=== PATIENT | female | born 1980 | race Caucasian/White ===

== ENCOUNTER → 2023-06-09 | Emergency (ER) | payer OTHER, SELFPAY ==
[~2023-06-09] MED LIST: CYCLOBENZAPRINE 10 MG TAB ONE; HYDROCODONE/APAP 5/325 MG TAB ONE; KETOROLAC 30 MG/ML INJ ONE; MORPHINE 4 MG/ML SYR ONE; ONDANSETRON 4 MG (ODT) TAB ONE; PROMETHAZINE 25 MG TABLET ONE; predniSONE 20 MG TAB ONE
--- OUTSIDE RECORDS SUMMARY | 2023-06-09 00:41 | XMS REPORT | Continuity of Care Document ---
Author Name Unknown Address [address] [facility] [address] [place] [address] [facility] thconnect Address [address] [facility]. [address] [place] [address] Care Team Providers Care Line Analyst Name Role Phone CORBIN EMERSON Primary Care Physician LINDA Brenner Attending Clinician BARBARA Carcamo Attending Clinician Liset benavidez RADIOLOGY Attending Clinician Unavailable Radiology Attending Clinician Unavailable CORBIN EMERSON Admitting Clinician Unavailable Payers Payer Name Policy Type Policy Number Effective Date Expirati on Date Source ISMAEL GARIBAY [employer]: [employer] 94 ON STAND 9 [id number] 2023 00:00:00 [facility] - OUT OF STATE [id number] 2019 00:00:00 Problems Condition Name Condition Details Condition Category Status Onset Date Resolution Date Last Treatment Date Treating Clinician Comments Source Asthma ([facility]) Asthma ([facility]) Disease Active 2022-06 00:00: 00 Overview: Formattin g of this note might be different from the original. diagnosed in childhood Last Assessmen t & Plan: Formattin g of this note might be different from the original. Patient describin g worsening asthma symptoms. No wheezing on exam but very likely would benefit from controlle r inhaler with inhaled corticost eroids in order to reduce long-term symptom burden. Also stressed complete cessation of smoking. Patient stated she had no interest in quitting at this time. We will order a chest x-ray since patient is new to clinic and has had questiona ble prior care in the past, also complaini ng of right arm neurologi c symptoms. Patient asked if she could have antibioti cs. I did concede that acute bronchiti s could possibly respond to antibioti cs and a smoker, though I did not find any other focal exam findings to suggest a bacterial infection . I will offer her a 5-day course of azithromy tonya. I did stressed that she needs to have a follow-up appointme nt, patient states that she is intereste d in following up in the [facility]. Joan Mendez - Externa l Allergies, Adverse Reactions, Alerts Allergy Name Allergy Type Status Severity Reaction(s) Onset Date Inactive Date Treating Clinician Comments Source Phenytoi n Sodium Propensi ty to adverse reaction s Active Rash 02-02 00:00: 00 Joan Mendez - Externa l Amoxicil weston Propensi ty to adverse reaction s Active Rash 02-02 00:00: 00 Joan Bakera l NO KNOWN ALLERGIE S Drug Class Active [facility] Social History Social Habit Start Date Stop Date Quantity Comments Source Sexual orientation K rehana Mendez - External History of tobacco use Cigarette Smoker Joan romero - External Alcohol intake 2023-05-13 00:00:00 2023-05-13 00:00:00 Current drinker of alcohol (finding) Joan Mendez - External History of Social function 2023-05-13 00:00:00 2023-05-13 00:00:00 Joan Mendez - External Alcohol Comment 2023-05-13 00:00:00 2023-05-13 00:00:00 occasional Joan Mendez - External Cigarettes smoked current (pack per day) - Reported 2023-05-13 00:00:00 2023-05-13 00:00:00 Joan Mendez - External Tobacco use and exposure 2023-05-13 00:00:00 2023-05-13 00:00:00 Smokeless tobacco non-user Joan Mendez - External Sex Assigned At 1980 00:00:00 1980 00:[birth year]:00 Joan Mendez - External Smoking Status Start Date Stop Date Source Unknown if ever smoked [facility] Smokes tobacco daily 2023-05-13 00:00:00 Joan Lazo Medications Ordered Medication Name Filled Medication Name Start Date Stop Date Current Medication? Ordering Clinician Indication Dosage Frequency Signature (SIG) Comments Components Source Gabapentin 300 MG oral Capsule 2022-06 08:20: 52 Yes Joan phoenix Topiramate 100 MG oral Tablet 2022-06 08:20: 52 Yes Joan phoenix Vilazodone HCl 40 MG oral Tablet 2022-06 08:20: 52 Yes Joan phoenix Lamotrigine 150 MG oral Tablet 2022-06 08:20: 52 Yes Joan phoenix Albuterol HFA 108 (90 Base) MCG/ACT IN AERS 2022-06 00:00: 00 Yes [id number] 2{puff} Q4H Inhale 2 puffs into the lungs every 4 hours as needed for wheezing or shortness of breath. Joan phoenix Fluticasone -Salmeterol (Advair Diskus) 500-50 MCG/ACT inhalation AEROSOL POWDER, BREATH ACTIVATED 2022-06 00:00: 00 05:59 :00 Yes [id number] 1{puff} Inhale 1 puff into the lungs 2 times daily. Joan phoenix Naproxen 500 MG oral Tablet 2022-06 00:00: 00 05-29 05:59 :00 Yes [id number] 500mg Take 1 tablet (500 mg total) by mouth in the morning and 1 tablet (500 mg total) in the evening. Take with meals. Do all this for 15 days. Joan phoenix Azithromyci n 250 MG oral Tablet 2022-06 00:00: 00 05-19 05:59 :00 Yes [id number] Take 2 tablets (500 mg total) by mouth daily for 1 day, THEN 1 tablet (250 mg total) daily for 4 days. Joan phoenix Lurasidone HCl 80 MG oral Tablet 2022-06 00:00: 00 Yes Joan Pinonold - Externa l Lurasidone HCl 20 MG oral Tablet 2022-06 00:00: 00 Yes Joan Mendez - Externa l Immunizations Ordered Immunization Name Filled Immunization Name Date Status Comments Source Influenza, Injectable, Mdck, Quadrivalent With Preservative Unknown Completed Joan Naikybold - External COVID-19 Vaccine(Pfizer)(fall 2022)(12yrs+) Unknown Completed Joan Naikybold - External Vital Signs Vital Name Observation Time Observation Value Comments S ource Systolic blood pressure 2023-05-13 14:15:00 133 mm[Hg] Joan Naikybo ld - External Diastolic blood pressure 2023-05-13 14:15:00 85 mm[Hg] Joan Seybo ld - External Heart rate 2023-05-13 14:15:00 74 /min Gay y Seybold - External Body temperature 2023-05-13 14:15:00 36.67 Corrine Joan ybold - External Respiratory rate 2023-05-13 14:15:00 20 /min Joan Seybold - External Body height 2023-05-13 14:15:00 167.6 cm Ann-Marie ey Seybold - External Body weight 2023-05-13 14:15:00 149.233 kg Ann-Marie ey Seybold - External BMI 2023-05-13 14:15:00 53.10 kg/m2 Ann-Marie ey Seybold - External Procedures Procedure Date / Time Performed Performing Clinician Source CHEST PA LATERAL 2023-05-13 15:39:03 Brenden Fraser Joan Seybold - External [facility] PATIENT FINANCIAL POLICY 2021-10-15 14:57:41 Doctor Unassigned, [facility] NO SHOW OR MISSED APPOINTMENT POLICY ACKNOWLEDGEMENT 2021-10-15 14:57:19 Doctor Unassigned, [facility] NOTICE OF PRIVACY PRACTICES 2021-10-15 14:56:53 Doctor Unassigned, [facility] CONSENT/REFUSAL FOR DIAGNOSIS AND TREATMENT 2021-10-15 14:56:37 Doctor Unassigned, [facility] ASSIGNMENT OF BENEFITS 2021-10-15 14:56:18 Docto r Unassigned, [facility] Encounters Start Date/Time End Date/Time Encounter Type Admission Type Attending [facility] Care Department Encounter ID Source 2023-06-17 14:00:00 2023-06-17 14:00:00 Outpatient LINDA LEVI JOAN JOAN [id number] Joan Andrea 2023-06-10 11:30:00 2023-06-10 11:30:00 Outpatient RAMUSUSI BARBARA JOAN DSA [id number] [facility] 2023-05-13 09:25:00 2023-05-13 09:25:00 Outpatient JOAN DAS [id number] [facility] 2023-05-13 08:15:00 2023-05-13 08:15:00 Outpatient BARBARA FRASER [id number] Joan [facility] 2023-04-22 11:29:53 2023-04-22 11:29:53 Outpatient SFA SFA [id number] Corbin F Christian 2023-02-11 14:11:08 2023-02-11 14:11:08 Outpatient SFA SFA [id number] Corbin Ruthann Christian 2023-02-08 18:13:21 2023-02-08 18:13:21 Outpatient SFA SFA [id number] Corbin Beavers Christian 2021-10-15 09:58:08 2021-10-15 23:59:00 Outpatient R RADIOLOGY [facility] RAD [id number] [facility] 2021-10-15 09:58:08 2021-10-15 23:59:00 Hospital Encounter Radiology [facility] [id number] [facility]
--- NOTE | 2023-06-09 04:01 | EDPHYS ---
Physician Documentation [facility] Name: Genet Hart Age: 43 yrs Sex: Female : 1980 Arrival Date: 06/09/2023 Time: 00:38 Bed 13 Private MD: ED Physician Abhay Desir HPI: 06/09 00:56 This 43 yrs old Female presents to ER via Unassigned with complaints of Arm sp4 Pain. 01:40 Right shoulder right arm pain starting 2 months ago intensifying 2 days ago. sp4 Historical: - Allergies: 01:08 Amoxicillin; ha1 01:08 Dilantin; ha1 - PMHx: 01:08 None; ha1 - Immunization history:: Adult Immunizations unknown. - Social history:: Smoking status: Patient reports the use of cigarette tobacco products, smokes one-half pack cigarettes per day. - Family history:: not pertinent. ROS: 01:52 Constitutional: Negative for fever, chills, and weight loss, positive R shoulder pain sp4 01:52 All other systems are negative, Exam: 01:52 Constitutional: This is a well developed, well nourished patient who is awake, alert, sp4 positive emotional upset Head/Face: Normocephalic, atraumatic. Eyes: Pupils equal round and reactive to light, extra-ocular motions intact. Lids and lashes normal. Conjunctiva and sclera are not injected. Cornea within normal limits. Periorbital areas with no swelling, redness, or edema. ENT: Nares patent. No nasal discharge, no septal abnormalities noted. Tympanic membranes are normal and external auditory canals are clear. Oropharynx with no redness, swelling, or masses, exudates, or evidence of obstruction, uvula midline. Mucous membranes moist. Neck: Trachea midline, no thyromegaly or masses palpated, and no cervical lymphadenopathy. Supple, full range of motion without nuchal rigidity, or vertebral point tenderness. Chest/axilla: Normal chest wall appearance and motion. Nontender with no deformity. No lesions are appreciated. Cardiovascular: Regular rate and rhythm with a normal S1 and S2. No gallops, murmurs, or rubs. Normal PMI, no JVD. No pulse deficits. Respiratory: Lungs have equal breath sounds bilaterally, clear to auscultation and percussion. No rales, rhonchi or wheezes noted. No increased work of breathing, no retractions or nasal flaring. Abdomen/GI: Soft, non-tender, with normal bowel sounds. No distension or tympany. No guarding or rebound. No evidence of tenderness throughout. Back: No spinal tenderness. No costovertebral tenderness. Skin: Warm, dry with normal turgor. Normal color with no rashes, no lesions, and no evidence of cellulitis. MS/ Extremity: Pulses equal, no cyanosis. Neurovascular intact. Full, normal range of motion. Neuro: Awake and alert, GCS 15, oriented to person, place, time, and situation. Cranial nerves II-XII grossly intact. Motor strength 5/5 in all extremities. Sensory grossly intact. Psych: Awake, alert, with orientation to person, place and time. Behavior, mood, and affect are within normal limits Vital Signs: 01:03 BP 142 / 101; Pulse 92; Resp 15 S; Temp 98.1; Pulse Ox 99% on R/A; Weight 147.42 kg; ha1 Height 5 ft. 6 in. ; 01:50 BP 148 / 85; Pulse 70; Resp 17 S; Pulse Ox 96% on R/A; ha1 02:15 BP 133 / 96; Pulse 79; Resp 17 S; Pulse Ox 96% on R/A; ha1 03:10 BP 143 / 83; Pulse 69; Resp 17 S; Pulse Ox 96% on R/A; ha1 04:10 BP 139 / 81; Pulse 70; Resp 16; Pulse Ox 97% on R/A; ha1 01:03 Body Mass Index 52.46 (147.42 kg, 167.64 cm) 1 MDM: 01:34 Patient medically screened. sp4 02:54 ED course: X ray - EXAM: XR Right Shoulder Complete, 2 or More Views CLINICAL HISTORY: sp4 The patient is 43 years old and is Female; R shoulder pain TECHNIQUE: Two or more views of the right shoulder. COMPARISON: No relevant prior studies available. FINDINGS: BONES/JOINTS: Unremarkable. No acute fracture. No dislocation. SOFT TISSUES: Unremarkable. IMPRESSION: Normal right shoulder radiographs.. 03:38 Data reviewed: vital signs, nurses notes. ED course: CT - FINDINGS: Straightening of sp4 the cervical lordosis may be secondary to patient positioning.. The atlantoaxial, atlantodental, and occipitoatlantal intervals are preserved. No fracture identified. Vertebral body height preserved. Prevertebral soft tissues are unremarkable. [id number] multilevel loss of intervertebral disc height with endplate spondylosis, facet arthropathy, and uncovertebral spurring. Posterior disc osteophyte complex at multiple levels mildly encroach upon the anterior spinal canal. Mild neural foraminal narrowing. Visualized skull base is intact. No fracture of the visualized facial bones. Visualized mastoid air cells and paranasal sinuses are well aerated. Visualized thyroid is unremarkable. No cervical lymphadenopathy. No pneumothorax in the visualized lung apices. IMPRESSION: 1. No acute fracture or subluxation of the cervical spine. 2. Moderate multilevel degenerative change of the cervical spine. If there is concern for radiculopathy MRI of the cervical spine would provide more complete characterization. . 03:57 Differential diagnosis: contusion, abrasion, tendonitis, spinal nerve radiculopathy. sp4 Data reviewed: radiologic studies, CT scan, plain films. Consideration of Admission/Observation Escalation of care including admission/observation considered. ED course: Patient has radiculopathic type pain, right shoulder all the way into the right hand suggestive of cervical spinal root compression. . ED course: Patient has no sign of paralysis or weakness on exam. I will refer her to primary care doctor for MRI of his C-spine. Then patient would require visit with neurosurgeon will refer to Dr. Abel Jones. . 06/09 01:27 Order name: Shoulder Right (2 View) XRAY sp4 06/09 01:27 Order name: CT C Spine sp4 Administered Medications: 01:45 Drug: Ondansetron PO 4 mg PO once Route: PO; ha1 02:10 Follow up: Response: No adverse reaction; Nausea is decreased ha1 01:45 Drug: Promethazine PO 50 mg PO once Route: PO; ha1 02:10 Follow up: Response: No adverse reaction; Nausea is decreased ha1 01:51 Drug: morphine IM 8 mg IM once Route: IM; Site: right ventrogluteal; ha1 02:10 Follow up: Response: No adverse reaction; Pain is decreased; RASS: Alert and Calm (0) ha1 01:51 Drug: Cyclobenzaprine PO 10 mg PO once Route: PO; ha1 02:10 Follow up: Response: No adverse reaction ha1 01:51 Not Given (Physician Discretion): [id number] mg IM once ha1 02:00 Drug: Ketorolac IM 60 mg IM once Route: IM; Site: left ventrogluteal; ha1 03:00 Follow up: Response: No adverse reaction; Pain is decreased ha1 02:51 Drug: HYDROcodone-acetaminophen PO 5 mg-325 mg 2 tabs PO once Route: PO; ha1 03:30 Follow up: Response: No adverse reaction; Pain is decreased; RASS: Alert and Calm (0) ha1 04:00 Drug: predniSONE PO 60 mg PO once Route: PO; ha1 04:12 Follow up: Response: No adverse reaction ha1 Disposition Summary: 06/09/23 04:01 Discharge Ordered Problem: new sp4 Symptoms: have improved sp4 Condition: Stable sp4 Diagnosis - Cervical disc disorder with radiculopathy, unspecified cervical region sp4 - Acute cervical radiculopathy. Cervical radicular pain. sp4 Followup: sp4 - With: Private Physician - When: 2 - 3 days - Reason: Recheck today's complaints Discharge Instructions: - Discharge Summary Sheet sp4 - Cervical Radiculopathy sp4 Forms: - Patient Portal Instructions sp4 Prescriptions: - ketorolac 10 mg Oral tablet - take 1 tablet ORAL route every 8 hours for 4 days PRN pain; 30 tablet; Refills: sp4 0, Product Selection Permitted - Cyclobenzaprine 10 mg Oral Tablet - take 1 tablet ORAL route every 8 hours As needed; 30 tablet; Refills: 0, sp4 Product Selection Permitted - Tramadol 50 mg Oral tablet - take 1 tablet ORAL route every 8 hours as needed; 20 tablet; Refills: 0, sp4 Product Selection Permitted - Prednisone 20 mg Oral Tablet - take 2 tablets ORAL route once daily for 5 days; 10 tablet; Refills: 0, Product sp4 Selection Permitted Signatures: Dispatcher [employer] Elise Mars RN RN ha1 Abhay Desir MD MD sp4
--- NOTE | 2023-06-09 04:01 | ER ---
Nurse's Notes [facility] Name: Genet Hart Age: 43 yrs Sex: Female : 1980 Arrival Date: 06/09/2023 Time: 00:38 Bed 13 Private MD: Diagnosis: Cervical disc disorder with radiculopathy, unspecified cervical region;Acute cervical radiculopathy. Cervical radicular pain. Presentation: 06/09 01:03 Chief complaint: Patient states: I have been having right shoulder pain for the past ha1 two days. I had this pain before and was diagnosed with a pinched nerve. pain 03/23. Coronavirus screen: Vaccine status:. Ebola Screen: No symptoms or risks identified at this time. Initial Sepsis Screen: Does the patient meet any 2 criteria? No. Patient's initial sepsis screen is negative. Does the patient have a suspected source of infection? No. Patient's initial sepsis screen is negative. Risk Assessment: Do you want to hurt yourself or someone else? Patient reports no desire to harm self or others. Onset of symptoms was June 07, 2023. 01:03 Method Of Arrival: Ambulatory ha1 01:03 Acuity: CHECO 3 ha1 Triage Assessment: 01:00 General: Appears uncomfortable, Behavior is cooperative. Pain: Complains of pain in ha1 rigth shoulder Pain does not radiate. Pain currently is 10 out of 10 on a pain scale. Quality of pain is described as burning, sharp, throbbing, Pain began gradually, 2-3 days ago. Neuro: Level of Consciousness is awake, alert, obeys commands, Oriented to person, place, time, situation. Cardiovascular: Capillary refill < 3 seconds Patient's skin is warm and dry. Respiratory: Airway is patent Respiratory effort is even, unlabored, Respiratory pattern is regular, symmetrical. Derm: Skin is pink, warm \T\ dry. Musculoskeletal: Circulation, motion, and sensation intact. Range of motion: intact in all extremities. Historical: - Allergies: 01:08 Amoxicillin; ha1 01:08 Dilantin; ha1 - PMHx: 01:08 None; ha1 - Immunization history:: Adult Immunizations unknown. - Social history:: Smoking status: Patient reports the use of cigarette tobacco products, smokes one-half pack cigarettes per day. - Family history:: not pertinent. Screenin:10 [facility] ED Fall Risk Assessment (Adult) History of falling in the last 3 months, ha1 including since admission No falls in past 3 months (0 pts) Confusion or Disorientation No (0 pts) Intoxicated or Sedated No (0 pts) Impaired Gait No (0 pts) Mobility Assist Device Used No (0 pt) Altered Elimination No (0 pt) Score/Fall Risk Level 0 - 2 = Low Risk Oriented to surroundings, Maintained a safe environment, Hourly rounding (assess needs \T\ fall precautionary measures) done. Abuse screen: Denies threats or abuse. Denies injuries from another. Nutritional screening: No deficits noted. Tuberculosis screening: No symptoms or risk factors identified. Assessment: 00:55 Reassessment: see triage assessment. ha1 01:50 Reassessment: Patient and/or family updated on plan of care and expected duration. Pain ha1 level reassessed. Patient is alert, oriented x 3, equal unlabored respirations, skin warm/dry/pink. 02:10 Reassessment: Patient and/or family updated on plan of care and expected duration. Pain ha1 level reassessed. Patient is alert, oriented x 3, equal unlabored respirations, skin warm/dry/pink. Patient states feeling better. Patient states symptoms have improved. 03:10 Reassessment: Patient and/or family updated on plan of care and expected duration. Pain ha1 level reassessed. Patient is alert, oriented x 3, equal unlabored respirations, skin warm/dry/pink. Patient states feeling better. Patient states symptoms have improved. 04:10 Reassessment: Patient and/or family updated on plan of care and expected duration. Pain ha1 level reassessed. Patient is alert, oriented x 3, equal unlabored respirations, skin warm/dry/pink. Vital Signs: 01:03 BP 142 / 101; Pulse 92; Resp 15 S; Temp 98.1; Pulse Ox 99% on R/A; Weight 147.42 kg; ha1 Height 5 ft. 6 in. ; 01:50 BP 148 / 85; Pulse 70; Resp 17 S; Pulse Ox 96% on R/A; ha1 02:15 BP 133 / 96; Pulse 79; Resp 17 S; Pulse Ox 96% on R/A; ha1 03:10 BP 143 / 83; Pulse 69; Resp 17 S; Pulse Ox 96% on R/A; ha1 04:10 BP 139 / 81; Pulse 70; Resp 16; Pulse Ox 97% on R/A; ha1 01:03 Body Mass Index 52.46 (147.42 kg, 167.64 cm) ha1 ED Course: 00:54 Patient arrived in ED. gm2 00:55 Patient has correct armband on for positive identification. Bed in low position. Call ha1 light in reach. Side rails up X 1. Adult w/ patient. 00:55 Arm band placed on right wrist. ha1 00:56 Abhay Desir MD is Attending Physician. sp4 01:08 Triage completed. ha1 01:34 Elise Mancia RN is Primary Nurse. ha1 01:39 Shoulder Right (2 View) XRAY In Process Unspecified. EDMS 02:01 CT C Spine In Process Unspecified. EDMS 04:18 No provider procedures requiring assistance completed. Patient did not have IV access ha1 during this emergency room visit. 04:18 Provided Education on: follow ups . ha1 Administered Medications: 01:45 Drug: Ondansetron PO 4 mg PO once Route: PO; ha1 02:10 Follow up: Response: No adverse reaction; Nausea is decreased ha1 01:45 Drug: Promethazine PO 50 mg PO once Route: PO; ha1 02:10 Follow up: Response: No adverse reaction; Nausea is decreased ha1 01:51 Drug: morphine IM 8 mg IM once Route: IM; Site: right ventrogluteal; ha1 02:10 Follow up: Response: No adverse reaction; Pain is decreased; RASS: Alert and Calm (0) ha1 01:51 Drug: Cyclobenzaprine PO 10 mg PO once Route: PO; ha1 02:10 Follow up: Response: No adverse reaction ha1 01:51 Not Given (Physician Discretion): [id number] mg IM once ha1 02:00 Drug: Ketorolac IM 60 mg IM once Route: IM; Site: left ventrogluteal; ha1 03:00 Follow up: Response: No adverse reaction; Pain is decreased ha1 02:51 Drug: HYDROcodone-acetaminophen PO 5 mg-325 mg 2 tabs PO once Route: PO; ha1 03:30 Follow up: Response: No adverse reaction; Pain is decreased; RASS: Alert and Calm (0) ha1 04:00 Drug: predniSONE PO 60 mg PO once Route: PO; ha1 04:12 Follow up: Response: No adverse reaction ha1 Medication: 01:11 VIS not applicable for this client. ha1 Outcome: 04:01 Discharge ordered by . trey 04:18 Discharged to home ambulatory, with family, ha1 04:18 Condition: stable 04:18 Discharge instructions given to patient, family, Instructed on discharge instructions, follow up and referral plans. medication usage, Demonstrated understanding of instructions, follow-up care, medications, Prescriptions given X 4, 04:19 Patient left the ED. ha1 Signatures: Dispatcher [employer] EDMS Gilson Esparza oe Elise Mancia RN RN 1 Abhay Desir MD MD sp4 Joanne Sanabria 2 Corrections: (The following items were deleted from the chart) 01:11 01:10 Inserted saline lock: 20 gauge in right antecubital area, using aseptic oe technique. Blood collected. oe
[2023-06-09 08:12] VITALS: TEMP 98.1
[2023-06-09 08:20] VITALS: BP 139/81; O2SAT 97
--- NOTE | 2023-06-09 10:43 | RAD REPORT ---
EXAM DESCRIPTION: CT - C Spine Wo Con - 06/09/2023 6:42 am CLINICAL HISTORY: Right arm pain, neck pain COMPARISON: None available TECHNIQUE: Axial CT of the cervical spine obtained without contrast. This exam was performed accordi ng to our departmental dose-optimization program, which includes automated exposure control, adjustme nt of the mA and/or kV according to patient size and/or use of iterative reconstruction technique. FINDINGS: Straightening of the cervical lordosis may be secondary to patient positioning.. The flower antoaxial, atlantodental, and occipitoatlantal intervals are preserved. No fracture identified. Darío tebral body height preserved. Prevertebral soft tissues are unremarkable. [id number] multilevel loss of intervertebral disc height with endplate spondylosis, facet arthr opathy, and uncovertebral spurring. Posterior disc osteophyte complex at multiple levels mildly encro ach upon the anterior spinal canal. Mild neural foraminal narrowing. Visualized skull base is intact. No fracture of the visualized facial bones. Visualized mastoid air cells and paranasal sinuses are well aerated. Visualized thyroid is unremarkable. No cervical lymphadenopathy. No pneumothorax in the visualized lung apices. IMPRESSION: 1. No acute fracture or subluxation of the cervical spine. 2. Moderate multilevel degenerative change of the cervical spine. If there is concern for radiculop athy MRI of the cervical spine would provide more complete characterization. Electronically signed by: Jameson Kent DO 06/09/2023 02:59 AM GENERAL MANAGER [employer] M Due to temporary technical issues with the PACS/Fluency reporting system, reports are being signed by the in house radiologist without review as a courtesy to ensure prompt reporting. The interpreting r adiologist is fully responsible for the content of the report.
--- NOTE | 2023-06-09 10:47 | RAD REPORT ---
EXAM DESCRIPTION: RAD - Shoulder Right 2 View - 06/09/2023 1:37 am XR Right Shoulder Complete, 2 or More Views CLINICAL HISTORY: The patient is 43 years old and is Female; R shoulder pain TECHNIQUE: Two or more views of the right shoulder. COMPARISON: No relevant prior studies available. FINDINGS: BONES/JOINTS: Unremarkable. No acute fracture. No dislocation. SOFT TISSUES: Unremarkable. IMPRESSION: Normal right shoulder radiographs. Electronically signed by: Yen Alvarez MD 06/09/2023 02:32 AM MARRIAGE COUNSELOR MINISTER Due to temporary technical issues with the PACS/Fluency reporting system, reports are being signed by the in house radiologist without review as a courtesy to ensure prompt reporting. The interpreting r adiologist is fully responsible for the content of the report.
== END ==
LOC: ER 00:38
DX: M50.10 Cervical disc disorder with radiculopathy, unspecified cervical region (principal); F17.210 Nicotine dependence, cigarettes, uncomplicated; Z88.1 Allergy status to other antibiotic agents; Z88.8 Allergy status to other drugs, medicaments and biological substances
CPT/HCPCS: 72125; 73030; Q0169; J7512; Q0162

== ENCOUNTER 2024-04-05 01:20 | Emergency (ER) | payer OTHER ==
--- OUTSIDE RECORDS SUMMARY | 2024-04-05 01:25 | XMS REPORT | Continuity of Care Document ---
Author Name Unknown Address [address] [facility] [place] [address] [facility] thconnect Address [address] [facility] [place] [address] Care Team Providers Care Vp Legal Affairs Name Role Phone CORBIN EMERSON Primary Care Physician Unavailab DYLAN Gonsalez Attending Clinician Unava ilable JAVED PARRY Attending Clinician UnavailHARDIK Almanza Attending Clinician UnavailBLAS Bhatti Attending Clinician Unavailable SUZIE MEDINA Attending Clinician Unavailable BARBARA FRASER Attending Clinician UnaCHASITY Finn Attending Clinician Unavailable RAFAEL HERBERT Attending Clinician Unavailable ADONAY SHRESTHA Attending Clinician Unava ilable MD JOHN Attending Clinician Unavailab [id number] Attending Clinician Unavailable LAB47 Attending Clinician Unavailable HANNA NORIEGA Attending Clinician Unavailable LAB90 Attending Clinician Unavailable RADIOLOGY Attending Clinician Unavailable Radiology Attending Clinician Unavailable CORBIN EMERSON Admitting Clinician Unavailable Payers Payer Name Policy Type Policy Number Effective Date Expirati on Date Source AEBETI AREVALO WILLIAM S 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 [facility] Allergies, Adverse Reactions, Alerts Allergy Name Allergy Type Status Severity Reaction(s) Onset Date Inactive Date Treating Clinician Comments Source Amoxicil weston Propensi ty to adverse reaction s Active Rash 02-02 00:00: 00 Joan phoenix Phenytoi n Sodium Propensi ty to adverse reaction s Active Rash 02-02 00:00: 00 Joan Parson l Bupropio n Propensi ty to adverse reaction s Active 08-08 00:00: 00 Joan phoenix NO KNOWN ALLERGIE S Drug Class Active [facility] Social History Social Habit Start Date Stop Date Quantity Comments Source Sexual orientation Derek eMndez - External ASSERTION Not Joan Mendez - External History of tobacco use Passive smoker Joan hooper - External Alcoholic beverage intake 2024-01-13 00:00:00 2024-01-13 00:00:00 Current drinker of alcohol (finding) Joan Mendez - External Cigarette pack-years 2024-01-12 00:00:00 2024-01-12 00:00:00 Joan Mendez - External Cigarettes smoked current (pack per day) - Reported 2024-01-12 00:00:00 2024-01-12 00:00:00 Joan Mendez - External Tobacco use and exposure 2024-01-12 00:00:00 2024-01-12 00:00:00 Smokeless tobacco non-user Joan Mendez - External Alcohol intake 2023-08-18 00:00:00 2023-08-18 00:00:00 Current drinker of alcohol (finding) Joan Mendez - External History of Social function 2023-06-10 00:00:00 2023-06-10 00:00:00 Joan Mendez - External Alcohol Comment 2023-05-13 00:00:00 2023-05-13 00:00:00 occasional Joan Mendez - External Sex 2023-03-18 17:47:01 2023-03-18 17:47:01 Female (finding) Joan Mendez - External Sex assigned at 1980 00:00:00 1980 00:00:00 Joan Mendez - External Smoking Status Start Date Stop Date Source Unknown if ever smoked [facility] Smokes tobacco daily 2024-01-12 00:00:00 Joan Mendez - External Medications Ordered Medication Name Filled Medication Name Start Date Stop Date Current Medication? Ordering Clinician Indication Dosage Frequency Signature (SIG) Comments Components Source Vilazodone HCl 40 MG oral Tablet 03-01 14:23: 06 Yes 1{tbl} QD Take 1 tablet by mouth daily. Joan phoenix Lamotrigine 150 MG oral Tablet 03-01 14:23: 06 Yes 150mg Q.5D Take 1 tablet (150 mg total) by mouth 2 times daily. Joan Parson l Melatonin 10 MG oral Tablet 03-01 14:23: 06 Yes 1{tbl} Take 1 tablet by mouth at bedtime. Joan phoenix Gabapentin 600 MG oral Tablet 02-10 00:00: 00 Yes 600mg Q.[id number] 3D Take 1 tablet (600 mg total) by mouth 3 times daily. Joan phoenix Vilazodone HCl 40 MG oral Tablet 01-12 10:33: 20 Yes 1{tbl} QD Take 1 tablet by mouth daily. Joan ph[facility] Lamotrigine 150 MG oral Tablet 01-12 10:33: 20 Yes 150mg Q.5D Take 1 tablet (150 mg total) by mouth 2 times daily. Joan phoenix Melatonin 10 MG oral Tablet 01-12 10:33: 20 Yes 1{tbl} Take 1 tablet by mouth at bedtime. Joan ph[facility]enix methylPREDN ISolone 4 MG oral Tablet Therapy Pack 01-12 00:00: 00 Yes [id number] 1{byron} Take 1 byron by mouth See Admin Instructio ns Use as directed. Joan phoenix Vilazodone HCl 40 MG oral Tablet 01-11 14:30: 05 Yes 1{tbl} QD Take 1 tablet by mouth daily. Joan phoenix Lamotrigine 150 MG oral Tablet 01-11 14:30: 05 Yes 150mg Q.5D Take 1 tablet (150 mg total) by mouth 2 times daily. Joan phoenix Melatonin 10 MG oral Tablet 01-11 14:30: 05 Yes 1{tbl} Take 1 tablet by mouth at bedtime. Joan phoenix Gabapentin 300 MG oral Capsule 01-11 00:00: 00 02-11 04:59 :00 Yes [id number] 600mg Q.[id number] 3D Take 2 capsules (600 mg total) by mouth 3 times daily. Joan phoenix Lurasidone HCl 120 MG oral Tablet 01-08 00:00: 00 Yes Joan phoenix Doxycycline Hyclate 100 MG oral Tablet 01-06 00:00: 00 Yes [id number] 100mg Q.5D Take 1 tablet (100 mg total) by mouth 2 times daily. Joan phoenix Pseudoeph-B romphen-DM 30-2-10 MG/5ML oral Syrup 01-06 00:00: 00 Yes [id number] 10mL Q.25D Take 10 mL by mouth 4 times daily as needed. oJan phoenix Vilazodone HCl 40 MG oral Tablet 12-29 12:56: 16 Yes 1{tbl} QD Take 1 tablet by mouth daily. Joan phoenix Lamotrigine 150 MG oral Tablet 12-29 12:55: 47 Yes 150mg Q.5D Take 1 tablet (150 mg total) by mouth 2 times daily. Joan ph[facility] Melatonin 10 MG oral Tablet 12-29 12:55: 47 Yes 1{tbl} Take 1 tablet by mouth at bedtime. Joan ph[facility] HYDROcodone -Acetaminop hen 10-325 MG oral Tablet 12-29 00:00: 00 Yes [id number] 1{tbl} Q.[id number] 3D Take 1 tablet by mouth every 8 hours as needed for pain. Joan ph[facility] Benzonatate (Tessalon Perles) 100 MG oral Capsule 12-29 00:00: 00 01-11 00:00 :00 No [id number] 100mg Q.[id number] 3D Take 1 capsule (100 mg total) by mouth 3 times daily as needed for cough. Joan ph[facility] Azithromyci n 250 MG oral Tablet 12-29 00:00: 00 01-04 04:59 :00 No [id number] Take 2 tablets by mouth on day 1 then 1 tablet by mouth daily for 4 days thereafter .. Joan ph[facility] Nitrofurant oin Monohyd Macro (Macrobid) 100 MG oral Capsule 12-02 00:00: 00 01-11 00:00 :00 No [id number] 100mg Q.5D Take 1 capsule (100 mg total) by mouth 2 times daily. [facility] HYDROcodone -Acetaminop hen 10-325 MG oral Tablet 11-28 00:00: 00 Yes [id number] 1{tbl} Q.92966349 [id number] 3D Take 1 tablet by mouth every 8 hours as needed for pain. Joan ph[facility] Fluticasone -Salmeterol 500-50 MCG/ACT inhalation AEROSOL POWDER, BREATH ACTIVATED 31 00:00: 00 Yes [id number] 1{puff} Q.5D TAKE 1 PUFF BY MOUTH TWICE A DAY Joan phoenix Meloxicam 15 MG oral Tablet 10-17 00:00: 00 12-02 00:00 :00 No 15mg Take 1 tablet (15 mg total) by mouth daily. Joan ph[facility] Vilazodone HCl 40 MG oral Tablet 08-17 15:32: 40 Yes 1{tbl} Take 1 tablet by mouth daily. Joan hpoenix Lamotrigine 150 MG oral Tablet 08-17 15:32: 40 Yes 150mg Take 1 tablet (150 mg total) by mouth 2 times daily. Joan phoenix Melatonin 10 MG oral Tablet 08-17 15:32: 40 Yes 1{tbl} Take 1 tablet by mouth at bedtime. Joan [facility] HYDROcodone -Acetaminop hen 10-325 MG oral Tablet 08-17 00:00: 00 01-11 00:00 :00 No [id number] 1{tbl} Q.25D Take 1 tablet by mouth every 6 hours as needed for pain. Joan ph[facility] Topiramate 100 MG oral Tablet -27 00:00: 00 Yes Joan ph[facility] Meloxicam 15 MG oral Tablet - 00:00: 00 09-03 04:59 :00 No [id number] 15mg Take 1 tablet (15 mg total) by mouth daily. Joan ph[facility] Fluticasone -Salmeterol (Advair Diskus) 500-50 MCG/ACT inhalation AEROSOL POWDER, BREATH ACTIVATED 2-20 00:00: 00 11-01 04:59 :00 No [id number] 1{puff} Inhale 1 puff into the lungs 2 times daily. Joan phoenix Vilazodone HCl 40 MG oral Tablet 07-21 13:09: 51 Yes 1{tbl} Take 1 tablet by mouth daily. Joan phoenix Lamotrigine 150 MG oral Tablet 07-21 13:09: 51 Yes 150mg Take 1 tablet (150 mg total) by mouth 2 times daily. Joan phoenix Melatonin 10 MG oral Tablet 07-21 13:09: 51 Yes 1{tbl} Take 1 tablet by mouth at bedtime. Joan phoenix predniSONE (DELTASONE) 10 MG oral tablet 07-21 00:00: 00 Yes [id number] 10mg Take 1 tablet (10 mg total) by mouth See Admin Instructio ns 3 tablets twice a day for three days, then 2 tablets twice a day for three days, then 1 tablet twice a day for three days. Joan phoenix Meloxicam 15 MG oral Tablet 07-07 00:00: 00 08-07 05:59 :00 No [id number] 15mg Take 1 tablet (15 mg total) by mouth daily. Joan phoenix Melatonin 10 MG oral Tablet 06-17 13:58: 29 Yes 1{tbl} Take 1 tablet by mouth at bedtime. Joan phoenix Vilazodone HCl 40 MG oral Tablet 06-17 13:58: 29 Yes 1{tbl} Take 1 tablet by mouth daily. Joan phoenix Lamotrigine 150 MG oral Tablet 06-17 13:58: 29 Yes 150mg Take 1 tablet (150 mg total) by mouth 2 times daily. Joan ph[facility] Topiramate 100 MG oral Tablet 06-17 13:57: 14 06-17 00:00 :00 No 100mg Take 1 tablet (100 mg total) by mouth 2 times daily. Joan phoenix Amantadine HCl 100 MG oral Tablet 06-15 00:00: 00 08-17 00:00 :00 No Joan ph[facility]enix Gabapentin 300 MG oral Capsule 2022-06 12:09: 18 06-10 00:00 :00 No 300mg Take 1 capsule (300 mg total) by mouth 3 times daily 300mg in am and afternoon, 600mg at bedtime. Joan phoenix Melatonin 10 MG oral Tablet 2022-06 11:45: 12 Yes 1{tbl} Take 1 tablet by mouth at bedtime. Joan ph[facility] Topiramate 100 MG oral Tablet 2022-06 11:45: 11 Yes 100mg Take 1 tablet (100 mg total) by mouth 2 times daily. Joan phoenix Vilazodone HCl 40 MG oral Tablet 2022-06 11:45: 11 Yes 1{tbl} Take 1 tablet by mouth daily. Joan phoenix Lamotrigine 150 MG oral Tablet 2022-06 11:45: 11 Yes 150mg Take 1 tablet (150 mg total) by mouth 2 times daily. Joan phoenix Gabapentin 300 MG oral Capsule 2022-06 00:00: 00 01-11 00:00 :00 No [id number] 600mg Q.[id number] [id number] 3D Take 2 capsules (600 mg total) by mouth 3 times daily. Joan phoenix Meloxicam 15 MG oral Tablet 2022-06 00:00: 00 07-11 05:59 :00 No [id number] 15mg Take 1 tablet (15 mg total) by mouth daily. Joan ph[facility]enix Lidocaine 4 % apply externally Gel 2022-06 00:00: 00 06-17 00:00 :00 No [id number] 1{appli cation} Apply 1 Applicatio n topically 3 times daily. Joan phoenix Tramadol HCl (ULTRAM) 50 MG oral Tablet 2022-06 00:00: 00 Yes Joan ph[facility] Cyclobenzap rine HCl 10 MG oral Tablet 2022-06 00:00: 00 Yes Joan phoenix predniSONE (DELTASONE) 20 MG oral tablet 2022-06 00:00: 00 Yes Joan phoenix Ketorolac Tromethamin e 10 MG oral Tablet 2022-06 00:00: 00 06-10 00:00 :00 No Joan phoenix Gabapentin 300 MG oral Capsule 2022-06 08:20: 52 Yes Joan phoenix Topiramate 100 MG oral Tablet 2022-06 08:20: 52 Yes Joan phoenix Vilazodone HCl 40 MG oral Tablet 2022-06 08:20: 52 Yes Joan phoenix Lamotrigine 150 MG oral Tablet 2022-06 08:20: 52 Yes Joan phoenix Albuterol HFA 108 (90 Base) MCG/ACT IN AERS 2022-06 00:00: 00 Yes [id number] 2{puff} Q4H Inhale 2 puffs into the lungs every 4 hours as needed for wheezing or shortness of breath. Joan phoenix Fluticasone -Salmeterol (Advair Diskus) 500-50 MCG/ACT inhalation AEROSOL POWDER, BREATH ACTIVATED 2022-06 00:00: 00 05:59 :00 No [id number] 1{puff} Inhale 1 puff into the lungs 2 times daily. Joan phoenix Naproxen 500 MG oral Tablet 2022-06 00:00: 00 05-29 05:59 :00 No [id number] 500mg Take 1 tablet (500 mg total) by mouth in the morning and 1 tablet (500 mg total) in the evening. Take with meals. Do all this for 15 days. Joan phoenix Azithromyci n 250 MG oral Tablet 2022-06 00:00: 00 05-19 05:59 :00 No [id number] Take 2 tablets (500 mg total) by mouth daily for 1 day, THEN 1 tablet (250 mg total) daily for 4 days. Joan phoenix Lurasidone HCl 80 MG oral Tablet 2022-06 00:00: 00 01-11 00:00 :00 No 1{tbl} Take 1 tablet by mouth at bedtime Takes with 20mg. Joan Mendez - Externa lizett Lurasidone HCl 20 MG oral Tablet 2022-06 00:00: 00 01-11 00:00 :00 No 1{tbl} QD Take 1 tablet by mouth nightly. Joan Naikbrennanick Ramesh Externa l Immunizations Ordered Immunization Name Filled Immunization Name Date Status Comments Source Influenza, Injectable, Mdck, Quadrivalent With Preservative Unknown Completed Joan Naikybold - External COVID-19 Vaccine(Appistry)(fall 2022)(12yrs+) Unknown Completed Joan Naikybold - External Covid-19 Vaccine Moderna (Spikevax), Mrna-lnp, Han Protein, Pf Unknown Completed Joan Naikybold - External Influenza, Injectable, Mdck, Quadrivalent With Preservative Unknown Completed Joan Naikybold - External COVID-19 Vaccine(Pfizer)(fall 2022)(12yrs+) Unknown Completed Joan Naikybold - External Covid-19 Vaccine Moderna (Spikevax), Mrna-lnp, Han Protein, Pf Unknown Completed Joan Pinonold - External Influenza, Injectable, Mdck, Quadrivalent With Preservative Unknown Completed Joan ybold - External COVID-19 Vaccine(Pfizer)(fall 2022)(12yrs+) Unknown Completed Joan Naikybold - External Covid-19 Vaccine Moderna (Spikevax), Mrna-lnp, Han Protein, Pf Unknown Completed Joan Naikybold - External Influenza, Injectable, Mdck, Quadrivalent With Preservative Unknown Completed Joan Seybold - External COVID-19 Vaccine(Pfizer)(fall 2022)(12yrs+) Unknown Completed Joan Seybold - External Covid-19 Vaccine Moderna (Spikevax), Mrna-lnp, Han Protein, Pf Unknown Completed Joan Naikybold - External Influenza, Injectable, Mdck, Quadrivalent With Preservative Unknown Completed Joan Seybold - External COVID-19 Vaccine(Pfizer)(fall 2022)(12yrs+) Unknown Completed Joan Seybold - External Covid-19 Vaccine Moderna (Spikevax), Mrna-lnp, Han Protein, Pf Unknown Completed Joan Seybold - External Influenza, Injectable, Mdck, Quadrivalent With Preservative Unknown Completed Joan Seybold - External COVID-19 Vaccine(Pfizer)(fall 2022)(12yrs+) Unknown Completed Joan Seybold - External Covid-19 Vaccine Moderna (Spikevax), Mrna-lnp, Han Protein, Pf Unknown Completed Joan Naikybold - External Influenza, Injectable, Mdck, Quadrivalent With Preservative Unknown Completed Joan Seybold - External COVID-19 Vaccine(Pfizer)(fall 2022)(12yrs+) Unknown Completed Joan Seybold - External Covid-19 Vaccine Moderna (Spikevax), Mrna-lnp, Han Protein, Pf Unknown Completed Joan Naikybold - External Influenza, Injectable, Mdck, Quadrivalent With Preservative Unknown Completed Joan Naikybold - External COVID-19 Vaccine(Pfizer)(fall 2022)(12yrs+) Unknown Completed Joan Seybold - External Covid-19 Vaccine Moderna (Spikevax), Mrna-lnp, Han Protein, Pf Unknown Completed Joan Naikybold - External Influenza, Injectable, Mdck, Quadrivalent With Preservative Unknown Completed Joan Seybold - External COVID-19 Vaccine(Pfizer)(12yrs +) Unknown Completed Joan Naikybold - External Covid-19 Vaccine Moderna (Spikevax), Mrna-lnp, Han Protein, Pf Unknown Completed Joan Naikybold - External Influenza, Injectable, Mdck, Quadrivalent With Preservative Unknown Completed Joan Seybold - External COVID-19 Vaccine(Pfizer)(fall 2022)(12yrs+) Unknown Completed Joan Naikybold - External Influenza, Injectable, Mdck, Quadrivalent With Preservative Unknown Completed Joan Seybold - External COVID-19 Vaccine(Pfizer)(fall 2022)(12yrs+) Unknown Completed Joan Naikybold - External Vital Signs Vital Name Observation Time Observation Value Comments S ource Systolic blood pressure 2024-03-01 19:18:00 128 mm[Hg] Joan Munoz ld - External Diastolic blood pressure 2024-03-01 19:18:00 70 mm[Hg] Joan Seybo ld - External Heart rate 2024-03-01 19:18:00 100 /min Kelse y Seybold - External Body temperature 2024-03-01 19:18:00 37.61 Corrine Joan Seybold - External Respiratory rate 2024-03-01 19:18:00 16 /min Joan Seybold - External Body height 2024-03-01 19:18:00 167.6 cm Ann-Marie ey Seybold - External Body weight 2024-03-01 19:18:00 136.986 kg Ann-Marie ey Seybold - External BMI 2024-03-01 19:18:00 48.74 kg/m2 Ann-Marie ey Seybold - External Systolic blood pressure 2024-01-13 15:33:00 132 mm[Hg] Joan Seybo ld - External Diastolic blood pressure 2024-01-13 15:33:00 74 mm[Hg] Joan Seybo ld - External Heart rate 2024-01-13 15:33:00 85 /min Kelse y Seybold - External Body temperature 2024-01-13 15:33:00 37 Corrine Joan Seybold - External Respiratory rate 2024-01-13 15:33:00 16 /min Joan Seybold - External Body height 2024-01-13 15:33:00 167.6 cm Ann-Marie ey Seybold - External Body weight 2024-01-13 15:33:00 140.615 kg Ann-Marie ey Seybold - External BMI 2024-01-13 15:33:00 50.04 kg/m2 Ann-Marie ey Seybold - External Oxygen saturation in Arterial blood by Pulse oximetry 2024-01-13 15:33:00 98 /min Joan Seybo ld - External Systolic blood pressure 2024-01-12 19:30:00 148 mm[Hg] Joan Seybo ld - External Diastolic blood pressure 2024-01-12 19:30:00 79 mm[Hg] Joan Seybo ld - External Heart rate 2024-01-12 19:30:00 88 /min Kelse y Seybold - External Systolic blood pressure 2023-08-18 21:22:00 124 mm[Hg] Joan Seybo ld - External Diastolic blood pressure 2023-08-18 21:22:00 77 mm[Hg] Joan Seybo ld - External Heart rate 2023-08-18 21:22:00 84 /min Kelse y Seybold - External Body temperature 2023-08-18 21:22:00 36.83 Corrine Joan Seybold - External Respiratory rate 2023-08-18 21:22:00 20 /min Joan Seybold - External Body weight 2023-08-18 21:22:00 153.225 kg Ann-Marie ey Seybold - External BMI 2023-08-18 21:22:00 54.52 kg/m2 Ann-Marie ey Seybold - External Systolic blood pressure 2023-06-17 19:50:00 122 mm[Hg] Joan Seybo ld - External Diastolic blood pressure 2023-06-17 19:50:00 68 mm[Hg] Joan Seybo ld - External Heart rate 2023-06-17 19:50:00 96 /min Kelse y Seybold - External Body temperature 2023-06-17 19:50:00 36.72 Corrine Joan Seybold - External Respiratory rate 2023-06-17 19:50:00 16 /min Joan Seybold - External Body height 2023-06-17 19:50:00 167.6 cm Ann-Marie ey Seybold - External Body weight 2023-06-17 19:50:00 156.037 kg Ann-Marie ey Seybold - External BMI 2023-06-17 19:50:00 55.52 kg/m2 Ann-Marie ey Seybold - External Oxygen saturation in Arterial blood by Pulse oximetry 2023-06-17 19:50:00 98 /min Joan Seybo ld - External Systolic blood pressure 2023-06-10 17:39:00 118 mm[Hg] Joan Seybo ld - External Diastolic blood pressure 2023-06-10 17:39:00 72 mm[Hg] Joan Seybo ld - External Heart rate 2023-06-10 17:39:00 98 /min Kelse y Seybold - External Body temperature 2023-06-10 17:39:00 36.44 Corrine Joan Seybold - External Respiratory rate 2023-06-10 17:39:00 20 /min Joan Seybold - External Body height 2023-06-10 17:39:00 167.6 cm Ann-Marie ey Seybold - External Body weight 2023-06-10 17:39:00 153.769 kg Ann-Marie ey Seybold - External BMI 2023-06-10 17:39:00 54.72 kg/m2 Ann-Marie ey Seybold - External Systolic blood pressure 2023-05-13 14:15:00 133 mm[Hg] Joan Seybo ld - External Diastolic blood pressure 2023-05-13 14:15:00 85 mm[Hg] Joan Seybo ld - External Heart rate 2023-05-13 14:15:00 74 /min Kelse y Seybold - External Body temperature 2023-05-13 14:15:00 36.67 Corrine Joan Seybold - External Respiratory rate 2023-05-13 14:15:00 20 /min Joan Seybold - External Body height 2023-05-13 14:15:00 167.6 cm Ann-Marie ey Seybold - External Body weight 2023-05-13 14:15:00 149.233 kg Ann-Marie ey Seybold - External BMI 2023-05-13 14:15:00 53.10 kg/m2 Ann-Marie ey Seybold - External Procedures Procedure Date / Time Performed Performing Clinician Source CHEST PA LATERAL 2023-05-13 15:39:03 Brenden Frasertoo Stubbssey Seybold - External [facility] PATIENT FINANCIAL POLICY 2021-10-15 14:57:41 Doctor Unassigned, [place] [facility] NO SHOW OR MISSED APPOINTMENT POLICY ACKNOWLEDGEMENT 2021-10-15 14:57:19 Doctor Unassigned, [place] [facility] NOTICE OF PRIVACY PRACTICES 2021-10-15 14:56:53 Doctor Unassigned, [place] [facility] CONSENT/REFUSAL FOR DIAGNOSIS AND TREATMENT 2021-10-15 14:56:37 Doctor Unassigned, [place] [facility] ASSIGNMENT OF BENEFITS 2021-10-15 14:56:18 Docto r Unassigned, [place] [facility] Encounters Start Date/Time End Date/Time Encounter Type Admission Type Attending [facility] Care Facility Care Department Encounter ID Source 2024-05-18 13:15:00 2024-05-18 13:15:00 Outpatient DYLAN NIX JOAN DAS [id number] [facility] 2024-04-12 14:30:00 2024-04-12 14:30:00 Outpatient JAVED PARRY [id number] [facility] 2024-03-09 10:50:59 2024-03-09 10:50:59 Outpatient SFA SFA [id number] [facility] 2024-03-01 14:30:00 2024-03-01 14:30:00 Outpatient AMBER HARDIK JOAN DAS [id number] [facility] 2024-02-24 00:00:00 2024-02-24 00:00:00 Outpatient JAVED PARRY [id number] [facility] 2024-02-11 14:24:16 2024-02-11 14:24:16 Outpatient SFA SFA [id number] Corbin [facility] 2024-01-13 10:45:00 2024-01-13 10:45:00 Outpatient BLAS BHATT JOAN DAS [id number] [facility] 2024-01-12 14:45:00 2024-01-12 14:45:00 Outpatient JAVED PARRY [id number] [facility] 2024-01-07 13:00:00 2024-01-07 13:00:00 Outpatient SUZEI MEDINA JOAN DAS [id number] [facility] 2024-01-06 11:22:00 2024-01-06 11:22:00 Outpatient SFA SFA [id number] 0725 Corbin [facility] 2024-01-02 00:00:00 2024-01-02 00:00:00 Outpatient RAMUADAMBARBARA GAN JOAN DAS [id number] [facility] 2023-12-30 13:00:00 2023-12-30 13:00:00 Outpatient VENECIA CHASITY JOAN DAS [id number] [facility] 2023-12-30 00:00:00 2023-12-30 00:00:00 Outpatient JAVED PARRY JOAN [id number] [facility] 2023-12-03 11:30:00 2023-12-03 11:30:00 Outpatient RAFAEL HERBERT JOAN DAS [id number] [facility] 2023-11-29 00:00:00 2023-11-29 00:00:00 Outpatient ANSOANUUR, JAVED DAS [id number] [facility] 2023-11-11 00:00:00 2023-11-11 00:00:00 Outpatient HENRIETTA ADONAY JOAN DAS [id number] [facility] 2023-10-19 00:00:00 2023-10-19 00:00:00 Outpatient ANSOANUUR, JAVED DAS [id number] [facility] 2023-10-19 00:00:00 2023-10-19 00:00:00 Outpatient ANSOANUUR, JAVED DAS [id number] [facility] 2023-10-18 00:00:00 2023-10-18 00:00:00 Outpatient ANSOANUUR, JAVED DAS [id number] [facility] 2023-10-07 10:30:39 2023-10-07 10:30:39 Outpatient [facility] [id number] Corbin Gonzales 2023-09-20 00:00:00 2023-09-20 00:00:00 Outpatient ANSOANUUR, JAVED DAS [id number] [facility] 2023-09-17 00:00:00 2023-09-17 00:00:00 Outpatient ANSOANUUR, JAVED DAS [id number] [facility] 2023-09-17 00:00:00 2023-09-17 00:00:00 Outpatient ANSOANUUR, JAVED DAS [id number] [facility] 2023-09-05 00:00:00 2023-09-05 00:00:00 Outpatient BRIA BARBARANathaniel DAS [id number] [facility] 2023-09-03 00:00:00 2023-09-03 00:00:00 Outpatient MD JOAN CAMEJO [id number] [facility] 2023-09-01 14:45:00 2023-09-01 14:45:00 Outpatient ANSOANUUR, JAVED DAS [id number] [facility] 2023-08-23 00:00:00 2023-08-23 00:00:00 Outpatient ANSOANUUR, JAVED DAS [id number] [facility] 2023-08-20 00:00:00 2023-08-20 00:00:00 Outpatient ANSOANUUR, JAVED DAS [id number] [facility] 2023-08-18 16:45:00 2023-08-18 16:45:00 Outpatient TRED47 JOAN DAS [id number] [facility] 2023-08-18 16:15:00 2023-08-18 16:15:00 Outpatient LAB47 JOAN DAS [id number] [facility] 2023-08-18 15:30:00 2023-08-18 15:30:00 Outpatient ANSOANUUR, JAVED DAS [id number] [facility] 2023-08-18 00:00:00 2023-08-18 00:00:00 Outpatient ANSOANUUR, JAVED DAS [id number] [facility] 2023-08-18 00:00:00 2023-08-18 00:00:00 Outpatient ANSOANUUR, JAVED DAS [id number] [facility] 2023-08-11 00:00:00 2023-08-11 00:00:00 Outpatient JOAN DAS [id number] [facility] 2023-08-09 14:05:31 2023-08-09 14:05:31 Outpatient [facility] NEVIN [id number] Corbin Gonzales 2023-08-08 00:00:00 2023-08-08 00:00:00 Outpatient JOAN DAS [id number] [facility] 2023-08-04 00:00:00 2023-08-04 00:00:00 Outpatient BARBARA FRASER [id number] Joan Seybold 2023-08-03 00:00:00 2023-08-03 00:00:00 Outpatient ADONAY SHRESTHA [id number] Joan Seybold 2023-07-28 00:00:00 2023-07-28 00:00:00 Outpatient MD JOAN CAMEJO [id number] Joan Seybold 2023-07-27 00:00:00 2023-07-27 00:00:00 Outpatient JOAN DAS [id number] Joan Seybold 2023-07-22 00:00:00 2023-07-22 00:00:00 Outpatient JOAN DAS [id number] Joan Seybold 2023-07-21 13:10:00 2023-07-21 13:10:00 Outpatient HANNA NORIEGA [id number] Joan Seybold 2023-07-20 13:45:00 2023-07-20 13:45:00 Outpatient JOAN DAS [id number] Joan Seybold 2023-07-20 07:35:00 2023-07-20 07:35:00 Outpatient JOAN DAS [id number] Joan Seybold 2023-07-20 00:00:00 2023-07-20 00:00:00 Outpatient ADONAY SHRESTHA [id number] Joan Seybold 2023-07-19 13:00:00 2023-07-19 13:00:00 Outpatient JOAN DAS [id number] Joan Seybold 2023-07-16 00:00:00 2023-07-16 00:00:00 Outpatient BARBARA FRASER [id number] Joan Seybold 2023-07-16 00:00:00 2023-07-16 00:00:00 Outpatient JOAN DAS [id number] Joan Seybold 2023-07-07 00:00:00 2023-07-07 00:00:00 Outpatient BARBARA FRASER [id number] Joan Seybold 2023-06-25 16:00:00 2023-06-25 16:00:00 Outpatient JOAN DAS [id number] Joan Seybold 2023-06-22 10:55:00 2023-06-22 10:55:00 Outpatient LAB90 JOAN DAS [id number] [facility] 2023-06-18 00:00:00 2023-06-18 00:00:00 Outpatient JOAN DAS [id number] Joan Andrea 2023-06-17 14:00:00 2023-06-17 14:00:00 Outpatient HENRIETTARAMUAN JOAN DAS [id number] Joan [facility] 2023-06-17 00:00:00 2023-06-17 00:00:00 Outpatient BARBARA FRASER [id number] Joan [facility] 2023-06-11 00:00:00 2023-06-11 00:00:00 Outpatient BARBARA FRASER [id number] [facility] 2023-06-11 00:00:00 2023-06-11 00:00:00 Outpatient JOAN DAS [id number] [facility] 2023-06-11 00:00:00 2023-06-11 00:00:00 Outpatient MD JOAN CAMEJO [id number] [facility] 2023-06-10 11:30:00 2023-06-10 11:30:00 Outpatient BRIA BARBARANathaniel DAS [id number] [facility] 2023-05-13 09:25:00 2023-05-13 09:25:00 Outpatient JOAN DAS [id number] Joan [facility] 2023-05-13 08:15:00 2023-05-13 08:15:00 Outpatient BARBARA FRASER [id number] Joan [facility] 2023-04-22 11:29:53 2023-04-22 11:29:53 Outpatient SFA SFA [id number] Corbin Gonzales 2023-02-11 14:11:08 2023-02-11 14:11:08 Outpatient SFA SFA [id number] Corbin Gonzales 2023-02-08 18:13:21 2023-02-08 18:13:21 Outpatient SFA SFA [id number] Corbin Gonzales 2021-10-15 09:58:08 2021-10-15 23:59:00 Outpatient R RADIOLOGY [facility] RAD [id number] [facility] 2021-10-15 09:58:08 2021-10-15 23:59:00 Hospital Encounter Radiology [facility] [id number] [facility] Notes Date/Time Note Provider Source 2024-03-01 14:23:42 Kiera Mireles is a 43 year old female Chief Complaint Patient presents with Referral Monica Caldera CMA II Monica Caldera [facility] II [facility] 2024-01-13 10:36:03 Chief Complaint Patient presents with URI URI Symptoms x2 weeks No noted acute distress. Vital signs stable. [phone] (home) [phone] (work) T [facility] 2024-01-12 14:28:57 Chief Complaint Patient presents with Neck Pain Follow-up T [facility] 2023-08-18 15:23:31 Kiera Woodson a 43 year old female with a past medical history of Past Medical History: Diagnosis Date Asthma ([facility]) diagnosed in childhood Depression with anxiety 2017 history of anti-depressants and anti-psychotic agents, followed by Ron Clancy who presents to clinic with Neck Pain and Shoulder Pain . her pain is localized to cervical spine & right Shoulder. her pain started 2years ago. The pain has progressively gotten Unchanged There was not an Inciting event . The pain is described as electric shock and tingling. There is radiation to the Cervical neck to right shoulder . The pain occurs constantly . The pain is aggravated by everything . The pain is alleviated by nothing . At its worst the pain is rated as a 10 out of 10, at its best the pain is rated as a 3 out of 10 and on average the pain is rated as a 5 out of 10. So far the patient has tried Gabapentin 600 mg & PT for the next 8 weeks. Current medications include Gabapentin which they take 3 x's a days. They have used these for the past 3 months These medications can take their worst pain rating down to a 5 out of 10. Patient denies bowel or bladder incontinence. Patient denies weakness. [facility] 2023-07-21 13:09:51 Chief Complaint Patient presents with Consultation Neck pain Isiah Medina [facility] 2023-06-17 13:58:31 Chief Complaint Patient presents with Establish Care New Patient New patient establish care Maya Cutler LVN [facility] 2023-06-10 11:45:13 Chief Complaint Patient presents with ER F/U Seen 05/13/2023 for right shoulder pain and went to ER yesterday. Pain became unbearable last night and went to ER. Has not been sleeping due to pain. [facility]
[2024-04-05] MEDS ORDERED: methocarbamoL 750 MG TAB ONE (02:01)
[2024-04-05] MEDS ORDERED: KETOROLAC 30 MG/ML INJ ONE (02:01)
[2024-04-05] MEDS ORDERED: predniSONE 20 MG TAB ONE (02:01)
[2024-04-05] MEDS ORDERED: HYDROCODONE/APAP 5/325 MG TAB ONE (02:02)
--- NOTE | 2024-04-05 03:52 | RAD REPORT ---
EXAM DESCRIPTION: XR KNEE 3 VIEWS LEFT 04/05/2024 3:23 AM CDT CLINICAL HISTORY: 44 years, Female, Knee pain. COMPARISON: None. FINDINGS: 3 X-ray views of the left knee (frontal lateral and oblique projections) were performed. Bones: No areas of acute bony injuries were demonstrated. Soft tissues: No significant soft tissue swelling. Joints: There is small suprapatellar joint effusion. Others: There are no gross intraosseous lesions. No periosteal reaction were seen. IMPRESSION: No acute bony injuries were demonstrated. Small suprapatellar joint effusion. Electronically signed by: Arnold Oliver MD 04/05/2024 03:40 AM CDT RP Due to temporary technical issues with the PACS/[employer] reporting system, reports are being alexa d by the in-house radiologist without review as a courtesy to ensure prompt reporting the interpreting radiologist is fully responsible for the content of the report. Transcribed Date/Time: 04/05/2024 3:52 AM
--- NOTE | 2024-04-05 03:52 | RAD REPORT ---
XR KNEE 3 VIEWS RIGHT INDICATION: Pain COMPARISON: None TECHNIQUE: 3 views of the right knee FINDINGS: BONES: No acute fracture or malalignment. No suspicious sclerotic or lytic lesion. SOFT TISSUE: Mild soft tissue swelling at anterior aspect of the knee. No significant suprapatellar j oint effusion. OTHER: None. IMPRESSION: No acute bony abnormality. Electronically signed by: Gayathri Phillips MD 04/05/2024 03:15 AM CDT RP Due to temporary technical issues with the PACS/[employer] reporting system, reports are being alexa d by the in-house radiologist without review as a courtesy to ensure prompt reporting the interpreting radiologist is fully responsible for the content of the report. Transcribed Date/Time: 04/05/2024 3:52 AM
--- NOTE | 2024-04-05 04:04 | ER ---
Nurse's Notes [facility] Name: Genet Hart Age: 44 yrs Sex: Female : 1980 Arrival Date: 04/05/2024 Time: 01:20 Bed 7 Private MD: Diagnosis: Sprain of unspecified site of left knee, initial encounter;Acute left knee sprain Presentation: 04/05 01:41 Chief complaint: Patient states: left knee pain X4 days and worsening. denies injury. lg3 Coronavirus screen: Client denies travel out of the [place] in the last 14 days. At this time, the client does not indicate any symptoms associated with coronavirus-19. Ebola Screen: No symptoms or risks identified at this time. Initial Sepsis Screen: Does the patient meet any 2 criteria? No. Patient's initial sepsis screen is negative. Does the patient have a suspected source of infection? No. Patient's initial sepsis screen is negative. Risk Assessment: Do you want to hurt yourself or someone else? Patient reports no desire to harm self or others. Onset of symptoms was April 01, 2024. 01:41 Method Of Arrival: Wheelchair lg3 01:41 Acuity: CHECO 4 lg3 Triage Assessment: 01:42 General: Appears in no apparent distress. uncomfortable, Behavior is calm, cooperative, lg3 crying. Pain: Complains of pain in left knee Pain does not radiate. Pain currently is 8 out of 10 on a pain scale. EENT: No deficits noted. No signs and/or symptoms were reported regarding the EENT system. Neuro: No deficits noted. Otto Agitation-Sedation Scale (RASS): 0 - Alert and Calm Level of Consciousness is awake, alert, obeys commands, Oriented to person, place, time, situation. Cardiovascular: No deficits noted. Denies chest pain, shortness of breath, Capillary refill < 3 seconds Clubbing of nail beds is absent JVD is absent Patient's skin is warm and dry. Respiratory: No deficits noted. Airway is patent Respiratory effort is even, unlabored, Respiratory pattern is regular, symmetrical. GI: No deficits noted. No signs and/or symptoms were reported involving the gastrointestinal system. : No deficits noted. No signs and/or symptoms were reported regarding the genitourinary system. Derm: No deficits noted. No signs and/or symptoms reported regarding the dermatologic system. Skin is intact, is healthy with good turgor, Skin is dry, Skin is normal, Skin temperature is warm. Musculoskeletal: Circulation, motion, and sensation intact. Range of motion: limited in left knee Reports pain in left knee. 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 - Infectious Disease History:: Denies. - Social history:: Smoking status: Patient reports the use of cigarette tobacco products, smokes one pack cigarettes per day. Patient uses alcohol, occasionally. Patient/guardian denies using street drugs. - Family history:: not pertinent. Screenin: [facility] ED Fall Risk Assessment (Adult) History of falling in the last 3 months, br2 including since admission No falls in past 3 months (0 pts) Confusion or Disorientation No (0 pts) Intoxicated or Sedated No (0 pts) Impaired Gait No (0 pts) Mobility Assist Device Used No (0 pt) Altered Elimination No (0 pt) Score/Fall Risk Level 0 - 2 = Low Risk Oriented to surroundings. Abuse screen: Denies threats or abuse. Denies injuries from another. Nutritional screening: No deficits noted. Tuberculosis screening: No symptoms or risk factors identified. Assessment: : Reassessment: Patient and/or family updated on plan of care and expected duration. Pain br2 level reassessed. Patient is alert, oriented x 3, equal unlabored respirations, skin warm/dry/pink. General: Appears uncomfortable, obese, Behavior is calm, cooperative. Pain: Complains of pain in lateral aspect of left knee, posterior aspect of left knee, medial aspect of left knee and left knee Pain does not radiate. Pain currently is 10 out of 10 on a pain scale. Neuro: Otto Agitation-Sedation Scale (RASS): 0 - Alert and Calm Level of Consciousness is awake, alert, obeys commands, Oriented to person, place, time, situation. Cardiovascular: Capillary refill < 3 seconds Respiratory: Airway is patent. GI: Bowel sounds present X 4 quads. Abdomen is tender to palpation in right upper quadrant Reports upper abdominal pain. : No signs and/or symptoms were reported regarding the genitourinary system. EENT: No signs and/or symptoms were reported regarding the EENT system. Derm: No signs and/or symptoms reported regarding the dermatologic system. Musculoskeletal: No signs and/or symptoms reported regarding the musculoskeletal system. 02:14 Reassessment: Patient and/or family updated on plan of care and expected duration. Pain cp4 level reassessed. Patient is alert, oriented x 3, equal unlabored respirations, skin warm/dry/pink. Patient states feeling better. 03:00 Reassessment: Patient and/or family updated on plan of care and expected duration. Pain cp4 level reassessed. Patient is alert, oriented x 3, equal unlabored respirations, skin warm/dry/pink. Patient states feeling better. Patient states symptoms have improved. 04:00 Reassessment: Patient and/or family updated on plan of care and expected duration. Pain cp4 level reassessed. Patient is alert, oriented x 3, equal unlabored respirations, skin warm/dry/pink. Patient states feeling better. Patient states symptoms have improved. Vital Signs: 01:41 BP 127 / 86; Pulse 72; Resp 17 S; Temp 98.4(O); Pulse Ox 98% on R/A; Weight 134.26 kg lg3 (R); Height 5 ft. 6 in. (R); Pain 8/10; 02:30 BP 108 / 64; Pulse 91; Resp 18 S; Pulse Ox 99% on R/A; cp4 01:41 Body Mass Index 47.78 (134.26 kg, 167.64 cm) lg3 01:41 Pain Scale: Adult lg3 [place] Coma Score: 06:10 Eye Response: spontaneous(4). Motor Response: obeys commands(6). Verbal Response: sp4 oriented(5). Total: 15. ED Course: 01:29 Patient arrived in ED. gm2 01:34 Latricia Salazar is Primary Nurse. cp4 01:42 Triage completed. lg3 01:42 Arm band placed on right wrist. lg3 01:42 Patient has correct armband on for positive identification. Bed in low position. Call br2 light in reach. Side rails up X 1. Provided Education on: PLAN OF CARE. 01:49 Katheryn Greenfield RN is Primary Nurse. br2 01:49 Abhay Desir MD is Attending Physician. sp4 02:10 hinged knee support brace to left knee. br2 02:42 Knee Left 3 View XRAY In Process Unspecified. EDMS 02:42 Knee Right 3 View XRAY In Process Unspecified. EDMS 04:19 No provider procedures requiring assistance completed. Patient did not have IV access cp4 during this emergency room visit. Administered Medications: 02:14 Drug: Ketorolac IM 60 mg IM once Route: IM; Site: left gluteus; br2 03:00 Follow up: Response: No adverse reaction cp4 02:14 Drug: Methocarbamol PO 750 mg PO once Route: PO; br2 03:00 Follow up: Response: No adverse reaction cp4 02:14 Drug: predniSONE PO 60 mg PO once Route: PO; br2 03:00 Follow up: Response: No adverse reaction cp4 03:47 Drug: HYDROcodone-acetaminophen PO 5 mg-325 mg 2 tabs PO once Route: PO; cp4 04:18 Follow up: Response: Medication administered at discharge. cp4 Medication: 04:19 VIS not applicable for this client. cp4 Outcome: 04:04 Discharge ordered by . sp4 04:19 Discharged to home via wheelchair, cp4 04:19 Condition: improved 04:19 Discharge instructions given to patient, Instructed on discharge instructions, follow up and referral plans. medication usage, Demonstrated understanding of instructions, follow-up care, medications, Prescriptions given X 4, 04:20 Patient left the ED. cp4 Signatures: Dispatcher [employer] Karoline Betts RN RN Abhay Lemus MD MD sp4 Latricia Salazar cp4 Joanne Sanabria gm2 Katheryn Greenfield RN RN br2 Corrections: (The following items were deleted from the chart) 01:48 01:42 Home Meds: Trazodone Oral; lg3 lg3 03:34 01:42 Immunization history: Adult Immunizations up to date, lg3 cp4
--- NOTE | 2024-04-05 04:05 | EDPHYS ---
Physician Documentation [facility] Name: Genet Hart Age: 44 yrs Sex: Female : 1980 Arrival Date: 04/05/2024 Time: 01:20 Bed 7 Private MD: ED Physician Abhay Desir HPI: 04/05 01:50 This 44 yrs old Female presents to ER via Wheelchair with complaints of Knee sp4 Pain. 01:56 44-year-old female presents with 3 days of persistent left knee pain. 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 - Infectious Disease History:: Denies. - Social history:: Smoking status: Patient reports the use of cigarette tobacco products, smokes one pack cigarettes per day. Patient uses alcohol, occasionally. Patient/guardian denies using street drugs. - Family history:: not pertinent. ROS: 06:10 Constitutional: Negative for fever, chills, and weight loss, positive left knee pain sp4 and pain with ambulation 06:10 All other systems are negative, Exam: 06:10 Constitutional: This is a well developed, well nourished patient who is awake, alert, sp4 and in no acute distress. Head/Face: Normocephalic, atraumatic. Eyes: Pupils equal round and reactive to light, extra-ocular motions intact. Lids and lashes normal. Conjunctiva and sclera are not injected. Cornea within normal limits. Periorbital areas with no swelling, redness, or edema. ENT: Nares patent. No nasal discharge, no septal abnormalities noted. Tympanic membranes are normal and external auditory canals are clear. Oropharynx with no redness, swelling, or masses, exudates, or evidence of obstruction, uvula midline. Mucous membranes moist. Neck: Trachea midline, no thyromegaly or masses palpated, and no cervical lymphadenopathy. Supple, full range of motion without nuchal rigidity, or vertebral point tenderness. Chest/axilla: Normal chest wall appearance and motion. Nontender with no deformity. No lesions are appreciated. Cardiovascular: Regular rate and rhythm with a normal S1 and S2. No gallops, murmurs, or rubs. Normal PMI, no JVD. No pulse deficits. Respiratory: Lungs have equal breath sounds bilaterally, clear to auscultation and percussion. No rales, rhonchi or wheezes noted. No increased work of breathing, no retractions or nasal flaring. Abdomen/GI: Soft, with normal bowel sounds. No distension or tympany. No guarding or rebound. No evidence of tenderness throughout. Back: No spinal tenderness. No costovertebral tenderness. Skin: Warm, dry with normal turgor. Normal color with no rashes, no lesions, and no evidence of cellulitis. MS/ Extremity: Pulses equal, no cyanosis. Neurovascular intact. Full, normal range of motion. positive left knee tenderness to palpation, Normal peripheral pulses, No sings of knee instability Neuro: Awake and alert, GCS 15, oriented to person, place, time, and situation. Cranial nerves II-XII grossly intact. Motor strength 5/5 in all extremities. Sensory grossly intact. Psych: Awake, alert, with orientation to person, place and time. Behavior, mood, and affect are within normal limits Vital Signs: 01:41 BP 127 / 86; Pulse 72; Resp 17 S; Temp 98.4(O); Pulse Ox 98% on R/A; Weight 134.26 kg lg3 (R); Height 5 ft. 6 in. (R); Pain 8/10; 02:30 BP 108 / 64; Pulse 91; Resp 18 S; Pulse Ox 99% on R/A; cp4 01:41 Body Mass Index 47.78 (134.26 kg, 167.64 cm) lg3 01:41 Pain Scale: Adult lg3 [place] Coma Score: 06:10 Eye Response: spontaneous(4). Motor Response: obeys commands(6). Verbal Response: sp4 oriented(5). Total: 15. MDM: 02:04 Medical Screening Exam initiated sp4 03:56 ED course: EXAM DESCRIPTION: XR KNEE 3 VIEWS LEFT 04/05/2024 3:23 AM CDT CLINICAL sp4 HISTORY: 44 years, Female, Knee pain. COMPARISON: None. FINDINGS: 3 X-ray views of the left knee (frontal lateral and oblique projections) were performed. Bones: No areas of acute bony injuries were demonstrated. Soft tissues: No significant soft tissue swelling. Joints: There is small suprapatellar joint effusion. Others: There are no gross intraosseous lesions. No periosteal reaction were seen. IMPRESSION: No acute bony injuries were demonstrated. Small suprapatellar joint effusion. . ED course: XR KNEE 3 VIEWS RIGHT INDICATION: Pain COMPARISON: None TECHNIQUE: 3 views of the right knee FINDINGS: BONES: No acute fracture or malalignment. No suspicious sclerotic or lytic lesion. SOFT TISSUE: Mild soft tissue swelling at anterior aspect of the knee. No significant suprapatellar joint effusion. OTHER: None. IMPRESSION: No acute bony abnormality. 06:10 Differential diagnosis: dislocation, open fracture, closed fracture, contusion, sp4 abrasion, tendonitis. Data reviewed: vital signs, nurses notes, radiologic studies, plain films. Consideration of Admission/Observation Escalation of care including admission/observation considered. ED course: Patient likely has overuse injury secondary to persistent standing at work. Recommended hinged knee brace. And knee brace was provided here in ER. Follow-up with orthopedist and patient states that she has to follow-up with Joan Mendez orthopedist on problem.. Follow up advised in 2 weeks . 04/05 01:56 Order name: Knee Left 3 View XRAY; Complete Time: 03:58 sp4 04/05 01:56 Order name: Knee Right 3 View XRAY; Complete Time: 03:58 sp4 04/05 01:56 Order name: Knee Immobilizer; Complete Time: 02:26 sp4 Administered Medications: 02:14 Drug: Ketorolac IM 60 mg IM once Route: IM; Site: left gluteus; br2 03:00 Follow up: Response: No adverse reaction cp4 02:14 Drug: Methocarbamol PO 750 mg PO once Route: PO; br2 03:00 Follow up: Response: No adverse reaction cp4 02:14 Drug: predniSONE PO 60 mg PO once Route: PO; br2 03:00 Follow up: Response: No adverse reaction cp4 03:47 Drug: HYDROcodone-acetaminophen PO 5 mg-325 mg 2 tabs PO once Route: PO; cp4 04:18 Follow up: Response: Medication administered at discharge. cp4 Disposition Summary: 04/05/24 04:04 Discharge Ordered Notes: Location: Home sp4 Problem: new sp4 Symptoms: have improved sp4 Condition: Stable sp4 Diagnosis - Sprain of unspecified site of left knee, initial encounter sp4 - Acute left knee sprain sp4 Followup: sp4 - With: Private Physician - When: 7 - 10 days - Reason: Recheck today's complaints Discharge Instructions: - Discharge Summary Sheet sp4 - Knee Sprain, Adult, [id number] sp4 Forms: - Patient Portal Instructions sp4 Prescriptions: - tramadol 100 mg Oral Tablet, ER Multiphase 24 hr - take 1 tablet ORAL route every 12 hours PRN pain; 20 tablet; Refills: 0, sp4 Product Selection Permitted - Ibuprofen 800 mg Oral Tablet - take 1 tablet ORAL route every 8 hours As needed take with food; 30 tablet; sp4 Refills: 0, Product Selection Permitted - Prednisone 20 mg Oral tablet - take 1 tablet ORAL route once daily for 10 days; 10 tablet; Refills: 0, Product sp4 Selection Permitted - methocarbamol 750 mg Oral tablet - take 2 tablets ORAL route every 8 hours for 2 days PRN pain; 60 tablet; sp4 Refills: 0, Product Selection Permitted Signatures: Dispatcher [employer] Karoline Betts RN RN lg3 Abhay Desir MD MD sp4 Latricia Salazar cp4 Katheryn Greenfield RN RN br2 Corrections: (The following items were deleted from the chart) 01:48 01:42 Home Meds: Trazodone Oral; lg3 lg3 03:34 01:42 Immunization history: Adult Immunizations up to date, lg3 cp4
[2024-04-05 11:35] VITALS: TEMP 98.4
[2024-04-05 11:43] VITALS: BP 108/64; O2SAT 99
== END 2024-04-05 04:20 | disposition home or self-care (01) ==
LOC: ER 01:20
DX: S83.92XA Sprain of unspecified site of left knee, initial encounter (principal); F17.210 Nicotine dependence, cigarettes, uncomplicated
CPT/HCPCS: 73562 ×2; J7512